=== PATIENT | male | born 1945 | race Caucasian/White ===

== ENCOUNTER 2020-09-01 09:54 | Emergency (ER) | payer MEDICARE ==
[~2020-09-01] VITALS: Ht 182.9 cm; Wt 89.3 kg
--- NOTE | 2020-09-01 10:11 | NUR ---
PT BROUGHT BACK FROM TRIAGE WITH CHIEF COMPLAINT OF SOB/CP INTERMITTENT 6 WEEKS. PAIN WOKE PT UP TODAY AT 2 AM. HX ACID REFLUX
[2020-09-01] MEDS ORDERED: ASPIRIN 81 MG TABLET CHEW ONE (10:24)
[2020-09-01] MEDS ORDERED: MAALOX/HYOSCYAMINE/LIDOCAINE 45 ML BTL PO ONE (10:30)
[2020-09-01] MEDS ORDERED: SODIUM CHLORIDE FLUSH 10ML SYR IVF ONE (10:30)
[2020-09-01] MEDS ORDERED: ASPIRIN 81 MG TABLET CHEW PO ONE (10:30)
[2020-09-01 10:40] LABS: BASOPHILS % (AUTO) 1 % (0-1); EOSINOPHILS % (AUTO) 2 % (1-7); LYMPHOCYTES % (AUTO) 41 % (22-44); MD NO; MEAN CORPUSCULAR HEMOGLOBIN 31.4 pg (27.5-34.5); MEAN CORPUSCULAR HGB CONC 33.7 g/dL (33.2-36.2); MEAN PLATELET VOLUME 7.6 fL (7.4-10.4); MONOCYTES % (AUTO) 11 % (2-9); NEUTROPHILS % (AUTO) 45 % (42-75); PLATELET COUNT 302 x10^3/uL (130-400); RED BLOOD COUNT 4.58 x10^6/uL (4.38-5.82); RED CELL DISTRIBUTION WIDTH 13.5 % (9.4-14.8)
[2020-09-01] MEDS ORDERED: MAALOX/HYOSCYAMINE/LIDOCAINE 45 ML BTL ONE (10:43)
[2020-09-01 10:45] LABS: ALANINE AMINOTRANSFERASE 31 U/L (12-78); ANION GAP 8 mmol/L (5-15); CALCIUM 8.7 mg/dL (8.5-10.1); CHLORIDE 108 mmol/L (98-107); CREATININE 0.63 mg/dL (0.7-1.3)
[2020-09-01 10:48] VITALS: BP 155/80
[2020-09-01 10:50] LABS: ALKALINE PHOSPHATASE 81 U/L (45-117); BILIRUBIN,TOTAL 0.6 mg/dL (0.2-1.0); TOTAL PROTEIN 7.5 g/dL (6.4-8.2); TROPONIN I < 0.015 ng/mL (0.000-0.045)
--- NOTE | 2020-09-01 11:27 | NUR ---
DON BYRDM AT BEDSIDE TO DISCUSS POC.
--- NOTE | 2020-09-01 11:39 | NUR ---
Discharge instructions reviewed
== END 2020-09-01 11:41 | disposition home or self-care (01) ==
LOC: ED 11:05
DX: R07.2 Precordial pain (principal); R06.02 Shortness of breath; R94.31 Abnormal electrocardiogram [ECG] [EKG]; K21.9 Gastro-esophageal reflux disease without esophagitis; E78.00 Pure hypercholesterolemia, unspecified; I10 Essential (primary) hypertension; Z90.89 Acquired absence of other organs
CPT/HCPCS: 36415; 80053; 83880; 84484; 85025; 93005; 99284

== ENCOUNTER 2020-09-05 08:09 | Outpatient (CLI) | payer MEDICARE | END 2020-09-05 23:59 | disposition home or self-care (01) | LOC: CFH 08:09 | PROVIDERS: ATTEND Internal Medicine Cardiovascular Disease | DX: R06.02 Shortness of breath (principal); R07.89 Other chest pain | CPT/HCPCS: 78452; 93017; A9502 ==